=== PATIENT | female | born 1970 | race Caucasian/White ===

== ENCOUNTER 2019-08-24 08:06 | Day surgery (SDC) | payer OTHER ==
--- NOTE | 2019-08-19 13:36 | HP ---
Admitting History and Physical - Primary Care Physician PCP: Jennifer Mo - Admission Chief Complaint: Left bloody nipple discharge History of Present Illness: 48 year old premnapausal female who presented with left bloody nipple discharge 08/2019. Not associated with any breast masses. Mammogram 12/2018 showed questionable density left inner breast and partially effaced and Us mildly prominent with fluid. Birad 2. Breast MRI was denied. History Source: Patient Limitations to Obtaining History: No Limitations - Past Medical History ...LMP: 08/10/19 Additional Past Medical History: Mutiple episodes of strep throat. jaundice at , mutiple cysts excised , seasonal allergies - Past Surgical History Additional Past Surgical History: Skin graft right hand 1974 left breast exicision cyst mutiple excisions of cysts left neck ,forearm,elbow and shoulders since - Smoking History Smoking history: Never smoked Have you smoked in the past 12 months: No - Alcohol/Substance Use Hx Alcohol Use: Yes (OCCASIONAL SOCIALLY) Home Medications - Allergies Allergies/Adverse Reactions: Allergies Allergy/AdvReac Type Severity Reaction Status Date / Time dexamethasone [From Decadron] AdvReac Severe DIZZY/INDUCED Verified 08/17/19 09: 36 A DRUG LIKE STATE - Home Medications Home Medications: Ambulatory Orders Albuterol Sulfate Inhaler - [Ventolin Hfa Inhaler -] 1 - 2 inh PO QID PRN MDD USES VERY RARELY 08/17/19 Cholecalciferol (Vitamin D3) [Vitamin D3] 1,000 unit PO DAILY 08/17/19 Loratadine [Claritin] 10 mg PO DAILY 08/17/19 Multivitamin/Iron/Folic Acid [Centrum Women Tablet] 1 each PO DAILY 08/17/19 [place]-3 Fatty Acids/Fish Oil [Fish Oil 1,000 mg Capsule] 1 each PO DAILY Zinc 50 mg PO DAILY 08/17/19 Family Medical History Family Hx Cancer: Grandfather (maternal) (prostate ca 76), Grandfather (paternal ) (prostate ca 51), Father (prostate 53) Physical Examination Constitutional: Yes: No Distress Breast(s): Yes: Other (Left breast nipple serosanguinous discharge no palpable msses or adenopathy bilaterally) Problem List - Problems (1) Bloody discharge from left nipple Code(s): N64.52 - NIPPLE DISCHARGE Assessment/Plan Left major duct excision
[2019-08-24 08:44] VITALS: BMI 25.3
[2019-08-24] MEDS ORDERED: SUCCINYLCHOLINE CHLORIDE 200 MG/10 ML SYRINGE ONE (09:17)
[2019-08-24] MEDS ORDERED: PROPOFOL 20 ML ONE (09:17)
[2019-08-24] MEDS ORDERED: MIDAZOLAM HCL 2 MG/2 ML SINGLE DOSE VIAL ONE (09:17)
[2019-08-24] MEDS ORDERED: LIDOCAINE HCL 1% PRESERVATIVE FREE - 30ML VIAL ONE (09:25)
[2019-08-24] MEDS ORDERED: BUPIVACAINE HCL 0.25% 125 MG/50 ML VIAL ONE (09:25)
[2019-08-24] MEDS ORDERED: TRIAMCINOLONE ACET 40MG/1ML VIAL ONE (09:52)
[2019-08-24] MEDS ORDERED: LIDOCAINE 1% P/F 10 MG/ML VIAL INF ONE (10:05)
[2019-08-24] MEDS ORDERED: BUPIVACAINE HCL/PF 0.25% (2.5MG/ML) 10 ML VIAL IJ ONE ×2 (10:05→10:16)
[2019-08-24] MEDS ORDERED: TRIAMCINOLONE ACET 40MG/1ML VIAL IM ONE (10:28)
[2019-08-24] MEDS ORDERED: KETOROLAC TROMETHAMINE 30 MG/1 ML VIAL IVPUSH PRN (10:39)
[2019-08-24] MEDS ORDERED: ONDANSETRON 4 MG/2 ML VIAL IVPUSH PRN ×2 (10:39→10:47)
[2019-08-24] MEDS ORDERED: DEXTROSE 5%-0.45% SALINE 1,000 ML IV SCH (10:45)
[2019-08-24] MEDS ORDERED: PROMETHAZINE HCL 25 MG/1 ML VIAL IVPUSH PRN (10:47)
[2019-08-24] MEDS ORDERED: oxyCODONE HCL 5 MG TABLET PO PRN ×2 (10:47)
[2019-08-24 11:41] VITALS: TEMP 97.6
[2019-08-24 12:20] VITALS: BP 119/92; PULSE 54
--- NOTE | 2019-08-24 18:21 | OP ---
DATE OF OPERATION: 08/24/2019 PREOPERATIVE DIAGNOSIS: Left breast bloody nipple discharge. POSTOPERATIVE DIAGNOSIS: Left breast bloody nipple discharge. PROCEDURE: Left breast major duct excision. ANESTHESIA: IV sedation with local. SURGEON: Byron Mo MD D[employer] MARKETING ASSOCIATE: NERI Pruett ESTIMATED BLOOD LOSS: Minimal. COMPLICATIONS: None. OPERATION: Patient was made aware of the risks and benefits of the procedure and consented. She was placed in a supine position. After IV sedation was administered, the operative site was prepped and draped in a sterile fashion. Local anesthesia was performed by injecting 1% lidocaine mixed with 0.25% bupivacaine in a 1:1 ratio. Periareolar incision was then made using electrocautery. Thick skin flap was made to the nipple. Using sharp dissection, the dilated, thickened nipples were dissected off of the nipple skin, and a cuff of underlying tissue was then excised and submitted as major duct excision. No evidence of mass or papilloma was identified. The wound was copiously irrigated with normal saline. Hemostasis maintained by electrocautery. The wound was then closed with deep 3-0 Vicryl followed by a running subcuticular 4-0 Monocryl. The skin was then injected with Kenalog because she is a keloid former. Steri-Strips, sterile dressing, and a compression bra were then applied, and the patient having tolerated the procedure was transferred to the recovery room in excellent condition. BYRON MO M.D. [id number]
--- NOTE | 2019-08-26 12:30 | PATH ---
Surgical Pathology Report Patient Name: DEIRDRE RICHARDSON [facility]. Rec. #: [id number] /Age/Gender: 1970 (Age: 48) / F Account: [id number] Location: [facility] Taken: 08/24/2019 Received: 08/24/2019 Reported: 08/26/2019 Physicians: Jennifer Mo M.D. Specimen(s) Received LEFT BREAST MAJOR DUCT EXCISION Clinical History Left breast bloody nipple discharge Final Diagnosis BREAST, LEFT, MAJOR DUCT, EXCISION: BENIGN BREAST TISSUE SHOWING INTRADUCTAL PAPILLOMA. Electronically Signed Jennifer Austin M.D. Gross Description Received in formalin, labeled "left breast, major duct excision" is a 1.5 x 1 x 0.8 cm unoriented portion of jaimes-white, fibrous appearing tissue. The specimen is inked black. Sectioning reveals white-jaimes, homogenous, fibrous appearing cut surface. Entirely submitted in three cassettes.
== END 2019-08-24 12:21 | disposition home or self-care (01) ==
LOC: FASU 08:06 → EDBD 08:30 → FASU 12:21
PROVIDERS: ATTEND Surgery Surgical Oncology
PROC: 0HBU0ZX Excision of Left Breast, Open Approach, Diagnostic (ICD-10-PCS; principal; 2019-08-24 10:04)
DX: D24.2 Benign neoplasm of left breast (principal); N64.52 Nipple discharge
CPT/HCPCS: 84703; 88307-TC; 94760